=== PATIENT | female | born 1980 | race Caucasian/White ===

== ENCOUNTER 2016-03-08 12:50 | Emergency (ER) | payer BC ==
[~2016-03-08] VITALS: Ht 162.6 cm; Wt 92.5 kg
[~2016-03-08 12:50] MED LIST: AMOX500T PO; MMW SWISH-SWAL
[2016-03-08 13:17] VITALS: BP 139/94; PULSE 92; RESP 18; TEMP 99; O2SAT 98
[2016-03-08] MEDS ORDERED: LISI10TA3 PO (13:26)
[2016-03-08] MEDS ORDERED: PENI500T PO ×2 (13:28→13:57)
--- NOTE | 2016-03-08 13:29 | PD ---
HPI Chief Complaint: ENT Complaint Time Seen by Provider: 13:25 Travel History International Travel<30 days: No Contact w/Intl Traveler<30days: No Traveled to known affect area: No History of Present Illness HPI 36-year-old female presents to the emergency department for evaluation of sore throat and headache that started 3 days ago. Patient states her daughter who is 8 years old was recently diagnosed with strep throat. She does report a fever last night. She took Tylenol last night which improved the fever. She reports a history of hypertension takes lisinopril. Patient states she has strep throat last year and this feels similar. She denies any other complaints at this time. PFS Past Medical History Diminished Hearing: No Hypertension: Yes Migraines: Yes Tetanus Vaccination: Unknown Influenza Vaccination: Yes ?: Not LMP: 02-22-16 : 2 Para: 2 Social History Alcohol Use: No Tobacco Use: No (quit 2013- smoked cigs-2-3 CIGARETTES A DAY) Substance Use: No Allergies-Medications (Allergen,Severity, Reaction): Coded Allergies: No Known Allergies (Verified , 03/08/16) Reported Meds & Prescriptions Reported Meds & Active Scripts Active Penicillin V Potassium 500 Mg Tab 10 Mg PO Q8H 10 Days Reported Lisinopril 10 Mg Tab 10 Mg PO DAILY Review of Systems Except as stated in HPI: all other systems reviewed are Neg Physical Exam Narrative GENERAL: Well-developed well-nourished female patient, ambulatory. Afebrile. SKIN: Warm and dry. HEAD: Normocephalic. Atraumatic. ENT: Mucosa pink and moist. Bilateral tonsils are erythematous without exudates. No uvular edema. No uvular, palatal, or tonsillar deviation. Airway patent. Nasal turbinates appear normal without nasal blood, purulent drainage or septal hematoma. Bilateral tympanic membranes are clear without erythema or perforation. EYES: No scleral icterus. No injection or drainage. NECK: Supple, trachea midline. No JVD or lymphadenopathy. No nuchal rigidity. CARDIOVASCULAR: Regular rate and rhythm without murmurs, gallops, or rubs. RESPIRATORY: Breath sounds equal bilaterally. No accessory muscle use. Lungs sounds are clear to auscultation. GASTROINTESTINAL: Abdomen soft, non-tender, nondistended. MUSCULOSKELETAL: No cyanosis, or edema. BACK: Nontender without obvious deformity. No CVA tenderness. Data Data Last Documented VS Vital Signs Date Time Temp Pulse Resp B/P Pulse Ox O2 Delivery O2 Flow Rate FiO2 03/08/16 13:17 99.0 92 18 139/94 98 MDM Medical Decision Making Medical Screen Exam Complete: Yes Emergency Medical Condition: Yes Medical Record Reviewed: Yes Differential Diagnosis Viral syndrome versus strep pharyngitis versus influenza versus URI Narrative Course 28-year-old female presents to the emergency department for evaluation of sore throat and headache for 3 days. Her daughter recently was diagnosed with strep throat similar symptoms. No nuchal rigidity or evidence of meningeal signs. Symptoms and physical are consistent with strep pharyngitis. She'll be treated for strep throat due to recent exposure and similar symptoms. She'll be discharged with a prescription for Pen-Vee K. She is to take Tylenol or ibuprofen [id number] follow up with her primary care physician. She is to return for any acute worsening of symptoms. Diagnosis Primary Impression: Pharyngitis Qualified Code: J02.9 - Pharyngitis, unspecified etiology Referrals: Primary Care Physician call for appointment Patient Instructions: General Instructions, Pharyngitis (ED) Departure Forms: Tests/Procedures, Work Release Enter return to work date: Mar 11, 2016 Additional Instructions: Rest. Drink plenty of fluids. [id number] Tylenol/ibuprofen as needed for pain. Warm salt water gargles. Take antibiotic as instructed until gone. [facility] Return to the emergency department for any acute worsening of symptoms. Med/Other Pt SpecificInfo: Prescription(s) given Scripts Penicillin V Potassium 500 Mg [id number] Mg PO Q8H 10 Days Ref 0 Prov:Sindy Koenig 03/08/16 Disposition: 01 DISCHARGE HOME Condition: Stable Sindy Koenig Mar 08, 2016 13:29 Sindy Koenig Mar 08, 2016 13:29
== END 2016-03-08 13:46 | disposition home or self-care (01) ==
LOC: PHEFT 12:50
DX: J02.9 Acute pharyngitis, unspecified (principal); I10 Essential (primary) hypertension
CPT/HCPCS: 99283